=== PATIENT | female | born 1985 | race African-American/Black ===

== ENCOUNTER 2021-05-13 07:13 | Emergency (ER) | payer OTHER ==
[2021-05-13 08:11] LABS: Hemoglobin 11.8 g/dL (12.0-16.0); Mean Corpuscular Hemoglobin 25.3 pg (27.0-31.0); Mean Corpuscular Volume 81.6 fL (78.0-98.0); Mean Platelet Volume 7.4 fL (7.4-10.4); Platelet Count 335 thou/uL (130-400); RBC Distribution Width 12.3 % (11.5-14.5); Red Blood Cell (RBC) Count 4.65 mill/uL (4.20-5.40); White Blood Cell (WBC) Count 4.7 thou/uL (4.8-10.8)
[2021-05-13 08:22] LABS: ALT (SGPT) 27 U/L (8-55); AST (SGOT) 26 U/L (5-34); Albumin 3.8 g/dL (3.5-5.0); Alkaline Phosphatase 52 U/L (40-110); Anion Gap 13 mmol/L (10-20); BUN (Urea Nitrogen) 9 mg/dL (7.0-18.7); Bilirubin, Total 0.5 mg/dL (0.2-1.2); Calc. Creatinine Clearance 0 mL/min (70-130); Calcium 9.4 mg/dL (7.8-10.44); Carbon Dioxide 26 mmol/L (22-29); Chloride 104 mmol/L (98-107); Globulin 3.8 g/dL (2.4-3.5); Glucose 108 mg/dL (70-105); Potassium 3.6 mmol/L (3.5-5.1); Protein, Total 7.6 g/dL (6.0-8.3); Sodium 139 mmol/L (136-145)
[2021-05-13 08:29] LABS: SARS-CoV-2 NAA Rapid Test Not Detected (NotDetected)
[2021-05-13 08:44] LABS: Lymphocytes 34 % (21-51); MDiff Complete? YES; Monocytes 17 % (0-10); Neutrophil 48 % (42-75); Platelet Morphology Comment Appears Adequate
== END 2021-05-13 09:45 | disposition home or self-care (01) ==
LOC: ERS 07:13
DX: R50.9 Fever, unspecified (principal); D64.9 Anemia, unspecified; I10 Essential (primary) hypertension; Z20.822 Contact with and (suspected) exposure to COVID-19
CPT/HCPCS: 0240U; 36415; 80053; 85025; 99283

== ENCOUNTER 2021-05-16 08:04 | Outpatient (CLI) | payer OTHER | END 2021-05-16 08:05 | disposition home or self-care (01) | LOC: BICRAD 08:04 | PROVIDERS: ATTEND Family Medicine | DX: R50.9 Fever, unspecified (principal) | CPT/HCPCS: 71046 ==

== ENCOUNTER 2021-05-28 14:05 | Outpatient (CLI) | payer OTHER | END 2021-05-28 14:06 | disposition home or self-care (01) | LOC: BICULT 14:05 | PROVIDERS: ATTEND Family Medicine | DX: M79.605 Pain in left leg (principal) ==

== ENCOUNTER 2022-11-24 10:36 | Outpatient (CLI) | payer OTHER | END 2022-11-24 10:37 | disposition home or self-care (01) | LOC: BICULT 10:36 | PROVIDERS: ATTEND Family Medicine | DX: N93.9 Abnormal uterine and vaginal bleeding, unspecified (principal); D25.9 Leiomyoma of uterus, unspecified | CPT/HCPCS: 76856 ==